=== PATIENT | female | born 2000 | race American Indian/Alaskan Native ===

== ENCOUNTER 2019-09-21 16:25 | Emergency (ER) | payer SELFPAY ==
--- NOTE | 2019-09-21 16:45 | Emergency Department Report ---
Chief Complaint: Vaginal Bleeding Stated Complaint: 8 WKS STOMACH PAIN - HPI History of Present Illness: ROSIE 04/30/2020 8 weeks vaginal spotting and pelvic cramping MSE screening note: Focused history and physical exam performed. Due to findings the following was ordered: ED Disposition for MSE Condition: Stable
[2019-09-21 18:06] LABS: Basophils # (Auto) 0.1 K/mm3 (0.0-0.1); Basophils % (Auto) 0.8 % (0.0-1.8); Eosinophils % (Auto) 0.5 % (0.0-4.3); Hematocrit 38.7 % (30.3-42.9); Hemoglobin 13.1 gm/dl (10.1-14.3); Lymphocytes # (Auto) 2.1 K/mm3 (1.2-5.4); Lymphocytes % (Auto) 30.2 % (13.4-35.0); Mean Corpuscular HGB Conc 34 % (30-34); Mean Corpuscular Volume 88 fl (79-97); Monocytes # (Auto) 0.8 K/mm3 (0.0-0.8); Monocytes % (Auto) 11.9 % (0.0-7.3); Platelet Count 317 K/mm3 (140-440); Red Blood Count 4.38 M/mm3 (3.65-5.03); Red Cell Distribution Width 13.7 % (13.2-15.2)
[2019-09-21 18:21] VITALS: BP 110/78
--- NOTE | 2019-09-21 18:21 | Emergency Department Report ---
ED HPI - General Chief complaint: Vaginal Bleeding Stated complaint: 8 WKS STOMACH PAIN Time Seen by Provider: 09/21/19 18:12 Source: patient Mode of arrival: Ambulatory Limitations: No Limitations - Related Data Allergies Allergy/AdvReac Type Severity Reaction Status Date / Time No Known Allergies Allergy Unverified 09/21/19 16:34 ED Review of Systems ROS: Stated complaint: 8 WKS STOMACH PAIN Other details as noted in HPI Comment: All other systems reviewed and negative ED Past Medical Hx - Past Medical History Previous Medical History?: Yes Additional medical history: Scoliosis - Surgical History Past Surgical History?: No ED Physical Exam - General Limitations: No Limitations ED Medical Decision Making - Lab Data Result diagrams: 09/21/19 17:53 Laboratory Tests 09/21/19 09/21/19 09/21/19 17:53 17:53 18:16 WBC 7.1 RBC 4.38 Hgb 13.1 Hct 38.7 MCV 88 MCH 30 MCHC 34 RDW 13.7 Plt Count 317 Lymph % (Auto) 30.2 [place] % (Auto) 11.9 H Eos % (Auto) 0.5 Baso % (Auto) 0.8 Lymph # 2.1 [place] # 0.8 Eos # 0.0 Baso # 0.1 Seg Neutrophils % 56.6 Seg Neutrophils # 4.0 HCG, Quant [id number] H Urine Color Urine Turbidity Urine pH Ur Specific [place] Urine Protein Urine Glucose (UA) Urine Ketones Urine Blood Urine Nitrite Urine Bilirubin Urine Urobilinogen Ur Leukocyte Esterase Urine WBC (Auto) Urine RBC (Auto) U Epithel Cells (Auto) Urine Mucus Blood Type O POSITIVE Antibody Screen Negative 09/21/19 18:59 WBC RBC Hgb Hct MCV MCH MCHC RDW Plt Count Lymph % (Auto) [place] % (Auto) Eos % (Auto) Baso % (Auto) Lymph # [place] # Eos # Baso # Seg Neutrophils % Seg Neutrophils # HCG, Quant Urine Color Yellow Urine Turbidity Clear Urine pH 6.0 Ur Specific [place] 1.016 Urine Protein <15 mg/dl Urine Glucose (UA) Neg Urine Ketones 80 Urine Blood Neg Urine Nitrite Neg Urine Bilirubin Neg Urine Urobilinogen < 2.0 Ur Leukocyte Esterase Neg Urine WBC (Auto) < 1.0 Urine RBC (Auto) 2.0 U Epithel Cells (Auto) 1.0 Urine Mucus Few Blood Type Antibody Screen - Radiology Data Radiology results: report reviewed Patient: MARGO LEACH MR#: [id number] : 2000 Acct:[id number] Age/Sex: 19 / F ADM Date: 09/21/19 Loc: ED Attending Dr: Ordering Physician: Shiela Elmore MD Date of Service: 09/21/19 Procedure(s): US OB transvaginal Accession Number(s): [id number] cc: Shiela Elmore MD TRANSABDOMINAL AND TRANSVAGINAL OB PELVIC ULTRASOUND INDICATION / CLINICAL INFORMATION: Vaginal bleeding. COMPARISON: None available. FINDINGS: Transabdominal: There is a single intrauterine with an estimated ge stational age of 8 weeks 1 day by crown-rump length. The heart rate is 177 bpm. A yolk sac is present. There is no evidence of implantation hemorrhage. The ovaries are not well seen. Transvaginal: No significant implantation hemorrhage is appreciated. The right ovary measures 3.5 x 2.2 x 2.2 cm and the left ovary 3.2 x 1.2 x 2.0 cm. There is normal blood flow to both ovaries on Doppler exam. There is no evidence of an extraovarian mass or free fluid. IMPRESSION:Single viable 8 week 1 day intrauterine without complication. Signer Name: Koko Bishop MD Signed: 09/21/2019 6:49 PM Workstation Name: [id number] Transcribed By: RT Dictated By: Koko Bishop MD Electronically Authenticated By: Koko Bishop MD Signed Date/Time: 09/21/191848 DD/ 44 TD/TT: Critical care attestation.: If time is entered above; I have spent that time in minutes in the direct care of this critically ill patient, excluding procedure time. ED Disposition Condition: Stable
--- NOTE | 2019-09-21 18:54 | Ultrasound Report ---
TRANSABDOMINAL AND TRANSVAGINAL OB PELVIC ULTRASOUND INDICATION / CLINICAL INFORMATION: Vaginal bleeding. COMPARISON: None available. FINDINGS: Transabdominal: There is a single intrauterine with an estimated gestational age of 8 weeks 1 day by crown-rump length. The heart rate is 177 bpm. A yolk sac is present. There is no evid ence of implantation hemorrhage. The ovaries are not well seen. Transvaginal: No significant implantation hemorrhage is appreciated. The right ovary measures 3.5 x 2 .2 x 2.2 cm and the left ovary 3.2 x 1.2 x 2.0 cm. There is normal blood flow to both ovaries on Dopp ler exam. There is no evidence of an extraovarian mass or free fluid. IMPRESSION:Single viable 8 week 1 day intrauterine without complication. Signer Name: Koko Bishop MD Signed: 09/21/2019 6:49 PM Workstation Name: [id number]
[2019-09-21 19:08] LABS: Bilirubin,Urine NEG (Negative); Blood,Urine NEG (Negative); Color,Urine Yellow (Yellow); Mucus,Urine FEW /HPF; Protein,Urine <15 mg/dL mg/dL (Negative); Urobilinogen,Urine < 2.0 mg/dL (<2.0); WBC,Urine < 1.0 /HPF (0.0-6.0)
== END 2019-09-21 18:30 | disposition left against medical advice (07) ==
LOC: ED 16:25
DX: O26.851 Spotting complicating pregnancy, first trimester (principal); Z3A.08 8 weeks gestation of pregnancy
CPT/HCPCS: 36415; 76801; 76817; 81001; 84702; 85025; 86850; 86900; 86901; 99283

== ENCOUNTER 2019-10-08 23:43 | Emergency (ER) | payer MEDICAID ==
[2019-10-08 23:54] VITALS: BP 117/64
[2019-10-09 01:02] LABS: Hematocrit 36.5 % (30.3-42.9); Hemoglobin 12.5 gm/dl (10.1-14.3); Mean Corpuscular HGB Conc 34 % (30-34); Mean Corpuscular Volume 88 fl (79-97); Platelet Count 287 K/mm3 (140-440); Red Blood Count 4.15 M/mm3 (3.65-5.03); Red Cell Distribution Width 13.3 % (13.2-15.2)
[2019-10-09 01:15] LABS: BUN/Creatinine Ratio 14; Blood Urea Nitrogen 7 mg/dL (7-17); Calcium 9.5 mg/dL (8.4-10.2); Hemolysis Index 21
[2019-10-09 02:54] LABS: Bilirubin,Urine NEG (Negative); Blood,Urine NEG (Negative); Color,Urine Yellow (Yellow); Mucus,Urine 2+ /HPF; Urobilinogen,Urine < 2.0 mg/dL (<2.0)
--- NOTE | 2019-10-09 02:58 | Ultrasound Report ---
ULTRASOUND OBSTETRIC Indication: abdoninal cramps. Findings: There is a single, living intrauterine . [place]-rump length = 5 cm = 10 weeks, 6 day(s). heart rate is 171 beats per minute. The ovaries are normal. There is no free fluid. Impression: Single, living intrauterine with estimated sonographic age of 10 weeks, 6 day(s). Signer Name: Charles Gupta MD Signed: 10/09/2019 2:53 AM Workstation Name: [id number]
[2019-10-09] MEDS ORDERED: ONDANSETRON 4 MG/2 ML INJ IV ONE (04:17)
[2019-10-09] MEDS ORDERED: SODIUM CHLORIDE 0.9% 1000 ML 2,000 ML IV ONE (04:17)
--- NOTE | 2019-10-09 04:36 | Emergency Department Report ---
Vomiting/Diarrhea - [facility] Chief Complaint: Nausea/Vomiting/Diarrhea Stated Complaint: ABD CRAMPS/EMESIS Time Seen by Provider: 10/09/19 04:16 Duration: 2 Days Diarrhea Severity: Mild Pain Location: Suprapubic Other History: 19-year-old -[place] female presents to the emergency room complaining of nausea vomiting and abdominal cramping. Patient reports she did vomit some Enriqueta soft streaks of blood in her vomit. Patient's last menstrual period was 07/25/2019 she is 1. She is followed by [facility] for [facility]. Patient is started care next appointment is October. ED Review of Systems ROS: Stated complaint: ABD CRAMPS/EMESIS Other details as noted in HPI ED Past Medical Hx - Past Medical History Previous Medical History?: Yes Additional medical history: Scoliosis - Surgical History Past Surgical History?: Yes - Social History Smoking Status: Never Smoker Substance Use Type: None - Medications Home Medications: Home Medications Medication Instructions Recorded Confirmed Last Taken Type Doxylamine Succinate [Unisom] 25 mg PO BID PRN #20 tablet 10/09/19 Unknown Rx Myrna Root [Myrna] 250 mg PO BID PRN #20 capsule 10/09/19 Unknown Rx Pyridoxine HCl (Vitamin B6) 50 mg PO BID PRN #20 tablet 10/09/19 Unknown Rx [Pyridoxine HCl] Vomiting Diarrhea Exam - Exam General: Vital signs noted. No distress. Alert and acting appropriately. HEENT: Yes Moist Mucous Membranes, No Pharyngeal Erythema, No Pharyngeal Exudates, No Rhinorrhea, No Conjuctival Injection, No Frontal Tenderness, No Maxillary Tenderness Neck: No Adenopathy, No Rigidity Lungs: Yes Clear Lung Sounds, Yes Good Air Exchange, No Wheezes, No Stridor, No Cough, No Nasal Flaring, No Retractions, No Use of Accessory Muscles Heart exam: Regular: Yes, Murmur: No, Tachycardia: No Abdomen: Tenderness: No, Peritoneal Signs: No, Distention: No, Hyperactive Bowel sounds: No Skin exam: Rash: No, Edema: No, Normal turgor: Yes Neurologic: Alert and oriented, no deficits. Musculoskeletal: Unremarkable. ED Course Vital Signs 10/08/19 10/08/19 23:49 23:51 Temperature 98.9 F 98.9 F Pulse Rate 92 H 95 H Respiratory 18 18 Rate Blood Pressure 117/64 117/64 O2 Sat by Pulse 98 98 Oximetry ED Medical Decision Making - Lab Data Result diagrams: 10/09/19 00:34 10/09/19 00:34 Laboratory Tests 10/09/19 10/09/19 10/09/19 00:34 00:34 00:34 WBC 9.6 RBC 4.15 Hgb 12.5 Hct 36.5 MCV 88 MCH 30 MCHC 34 RDW 13.3 Plt Count 287 Lymph % (Auto) Hospitality [employer]iter [place] % (Auto) Hospitality Rec[employer]iter Eos % (Auto) Hospitality Recruiter Baso % (Auto) Hospitality Recruiter Lymph # Hospitality Recruiter [place] # Hospitality Recruiter Eos # Hospitality Recruiter Baso # Hospitality Recruiter Seg Neutrophils % Hospitality Recruiter Seg Neutrophils # Hospitality Recruiter Sodium 138 Potassium 3.9 Chloride 101.6 Carbon Dioxide 22 Anion Gap 18 BUN 7 Creatinine 0.5 L Estimated GFR > 60 BUN/Creatinine Ratio 14 Glucose 92 Calcium 9.5 HCG, Quant 150998 H Urine Color Urine Turbidity Urine pH Ur Specific [place] Urine Protein Urine Glucose (UA) Urine Ketones Urine Blood Urine Nitrite Urine Bilirubin Urine Urobilinogen Ur Leukocyte Esterase Urine WBC (Auto) Urine RBC (Auto) U Epithel Cells (Auto) Urine Mucus 10/09/19 02:10 WBC RBC Hgb Hct MCV MCH MCHC RDW Plt Count Lymph % (Auto) [place] % (Auto) Eos % (Auto) Baso % (Auto) Lymph # [place] # Eos # Baso # Seg Neutrophils % Seg Neutrophils # Sodium Potassium Chloride Carbon Dioxide Anion Gap BUN Creatinine Estimated GFR BUN/Creatinine Ratio Glucose Calcium HCG, Quant Urine Color Yellow Urine Turbidity Slightly-cloudy Urine pH 6.0 Ur Specific [place] 1.027 Urine Protein 30 mg/dl Urine Glucose (UA) Neg Urine Ketones 80 Urine Blood Neg Urine Nitrite Neg Urine Bilirubin Neg Urine Urobilinogen < 2.0 Ur Leukocyte Esterase Neg Urine WBC (Auto) 2.0 Urine RBC (Auto) 3.0 U Epithel Cells (Auto) 10.0 Urine Mucus 2+ - Radiology Data Radiology results: report reviewed Patient: MAGRO LEACH MR#: [id number] : 2000 Acct:[id number] Age/Sex: 19 / F ADM Date: 10/08/19 Loc: ED Attending Dr: Ordering Physician: ED DOC, Date of Service: 10/09/19 Procedure(s): US OB <= 14 weeks fetus Accession Number(s): [id number] cc: ED DOC, ULTRASOUND OBSTETRIC Indication: abdoninal cramps. Findings: There is a single, living intrauterine . [place]-rump length = 5 cm = 10 weeks, 6 day(s). heart rate is 171 beats per minute. The ovaries are normal. There is no free fluid. Impression: Single, living intrauterine with estimated sonographic age of 10 weeks, 6 day(s). Signer Name: Charles Gupta MD Signed: 10/09/2019 2:53 AM Workstation Name: [id number] Transcribed By: BETTIE Dictated By: Charles Gupta MD Electronically Authenticated By: Charles Gupta MD Signed Date/Time: 10/09/19252 DD/ 2 TD/TT: - Medical Decision Making 19-year-old -[place] female presents to the emergency room complaining of nausea vomiting and abdominal cramping. Patient reports she did vomit some Enriqueta soft streaks of blood in her vomit. Patient's last menstrual period was 07/25/2019 she is 1. She is followed by [facility] for [facility]. Patient is started care next appointment is October. Ultrasound completed shows patient is 10 weeks and 4 days . Patient was given Zofran and 2 L of fluid. Patient reports she feels much better. Critical care attestation.: If time is entered above; I have spent that time in minutes in the direct care of this critically ill patient, excluding procedure time. ED Disposition Clinical Impression: Hyperemesis gravidarum, Abdominal cramping affecting Disposition: DC-01 TO HOME OR SELFCARE Is pt being admited?: No Does the pt Need Aspirin: No Condition: Stable Instructions: Hyperemesis Gravidarum (ED) Prescriptions: Myrna Root [Myrna] 250 mg PO BID PRN #20 capsule PRN Reason: Nausea And Vomiting Pyridoxine HCl (Vitamin B6) [Pyridoxine HCl] 50 mg PO BID PRN #20 tablet PRN Reason: Nausea And Vomiting Doxylamine Succinate [Unisom] 25 mg PO BID PRN #20 tablet PRN Reason: Nausea And Vomiting Referrals: You are, [facility] provider. [Other] - 3-5 Days Forms: Work/School Release Form(ED)
== END 2019-10-09 07:21 | disposition home or self-care (01) ==
LOC: ED 23:43
DX: O21.0 Mild hyperemesis gravidarum (principal); O21.8 Other vomiting complicating pregnancy; Z3A.10 10 weeks gestation of pregnancy
CPT/HCPCS: 36415; 76801; 80048; 81001; 84702; 85025; 96361; 96374; 99284; J2405; J7030